=== PATIENT | male | born 1985 | race Caucasian/White ===

== ENCOUNTER 2025-05-20 15:33 | Outpatient (CLI) | payer BC, SELFPAY ==
--- NOTE | 2025-05-20 16:00 | CRLHL7_ITS ---
For Patients: As a result of the Century Cures Act, medical imaging exams and procedure reports are released immediately into your electronic medical record. You may view this report before your referring provider. If you have questions, please contact your health care provider. Indication: RECTAL PRESSURE FOLLOWING BOWEL MOMENTS FOR 8 WEEKS Technique: CT PELVIS WITH ISOVUE 370 75 CC CONTRAST intravenous contrast Please note that all CT scans at this facility use dose modulation, iterative reconstruction, and/or weight-based dosing when appropriate to reduce radiation dose to as low as reasonably achievable. Comparison: CT 05/31/2016 Findings: The bladder is normal. The prostate is unremarkable. Visualized bowel loops are normal without inflammation or obstruction. Normal appendix. No adenopathy. No free fluid or abscess. No hernia. Normal osseous structures. Impression: Unremarkable. Please note that all CT scans at this facility use dose modulation, iterative reconstruction, and/or weight-based dosing when appropriate to reduce radiation dose to as low as reasonably achievable. Dictated by Gregorio Espinoza MD @ 05/21/2025 10:01:46 AM (Electronically Signed)
== END 2025-05-20 15:34 | disposition home or self-care (01) ==
LOC: CT 15:35
PROVIDERS: PCP Family Medicine; Visit Provider Surgery
DX: K62.89 Other specified diseases of anus and rectum (principal)
CPT/HCPCS: 72193; Q9967